=== PATIENT | male | born 1960 | race Caucasian/White ===

== ENCOUNTER 2017-11-15 07:06 | Inpatient (IN) | payer OTHER ==
[2017-10-25 11:56] VITALS: BMI 22.0
--- NOTE | 2017-10-25 12:23 | PAT Medication Instructions ---
Service Date Oct 25, 2017. Current Home Medication List Chlordiazepoxide (Librium), 10 MG PO NOON/HS Citalopram Hydrobromide (Celexa), 20 MG PO QAM Esomeprazole Magnesium (Nexium), 20 MG PO QAM Gabapentin (Neurontin), 200 MG PO TID Multivitamin (Multivitamin), 1 TAB PO QAM Probiotic Product (Probiotic), 1 TAB PO BID Medication Instructions For Your Scheduled Surgery - Hold the following medications the morning of surgery: Multivitamin (Multivitamin), 1 TAB PO QAM Probiotic Product (Probiotic), 1 TAB PO BID - Take the following medications the morning of surgery with a sip of water: Citalopram Hydrobromide (Celexa), 20 MG PO QAM Esomeprazole Magnesium (Nexium), 20 MG PO QAM Gabapentin (Neurontin), 200 MG PO TID - Take the following medications as scheduled the night before surgery: Chlordiazepoxide (Librium), 10 MG PO NOON/HS Gabapentin (Neurontin), 200 MG PO TID Probiotic Product (Probiotic), 1 TAB PO BID If you have any questions please call us at [phone] or [phone] or [phone]
--- NOTE | 2017-10-25 13:08 | DIAGNOSTIC IMAGING REPORT ---
CHEST 2 VIEWS ROUTINE CLINICAL HISTORY: Preoperative chest COMPARISON STUDY: No previous studies for comparison. FINDINGS: The cardiac and mediastinal contours are normal. There is no evidence of focal pulmonary consolidation. There is no evidence of failure. No pleural effusions are visualized.[ IMPRESSION: No active disease in the chest. Electronically signed by: David Portillo M.D. 10/25/2017 1:07 PM Dictated Date/Time: 10/25/2017 1:06 PM
[2017-10-25 15:49] LABS: BASO % 0.3 %; BASO ABS # 0.02 K/uL (0-0.2); EOS % 1.7 %; EOS ABS # 0.11 K/uL (0-0.5); HEMATOCRIT 41.9 % (42-52); HEMOGLOBIN 14.8 g/dL (14.0-18.0); IG# 0.02 K/uL (0.00-0.02); LYMPH % 31.9 %; LYMPH ABS # 2.04 K/uL (1.2-3.4); MEAN CELL VOLUME 97.7 fL (80-100); MEAN CORPUSCULAR HEMOGLOBIN 34.5 pg (25-34); MEAN CORPUSCULAR HGB CONC 35.3 g/dl (32-36); MEAN PLATELET VOLUME 9.4 fL (7.4-10.4); MONO % 12.4 %; MONO ABS # 0.79 K/uL (0.11-0.59); NEUT % 53.4 %; NEUT ABS # 3.41 K/uL (1.4-6.5); PLATELET COUNT 250 K/uL (130-400); WHITE BLOOD COUNT 6.39 K/uL (4.8-10.8)
[2017-10-25 15:58] LABS: CALCIUM 9.3 mg/dl (8.5-10.1); CREATININE 0.92 mg/dl (0.60-1.40); POTASSIUM 4.6 mmol/L (3.5-5.1)
[2017-11-15] VITALS (9 sets, daily range): BP systolic 119–163; BP diastolic 69–90; PULSE 64–83; TEMP 36.5–37; O2SAT 90–98; Ht 175.3 cm; Wt 70.0 kg
[~2017-11-15] VITALS: Ht 175.3 cm; Wt 70.0 kg
[~2017-11-15 07:06] MED LIST: CEFAZOLIN 1000MG IV PUSH 7.5 ML IV SCH; CHLO10CA7 PO; CITA20TA9 PO; ESOM20CA PO; GABA-112 PO; LACTATED RINGER'S 1000ML 1,000 ML IV SCH; MISCCAP80 PO; MULT-506 PO
[2017-11-15] MEDS ORDERED: MEPERIDINE HCL 25 MG/ML CARP IV PRN (08:00)
[2017-11-15] MEDS ORDERED: ATROPINE SULFATE 0.1 MG/ML 5ML SYR IV PRN (08:00)
[2017-11-15] MEDS ORDERED: LABETALOL HCL IV 5 MG/ML 20ML IV PRN (08:00)
[2017-11-15] MEDS ORDERED: EpHEDrine SULFATE INJ 50 MG/ML AMP IV PRN (08:00)
[2017-11-15] MEDS ORDERED: HYDROmorphone INJ 1 MG/ML SYR IV PRN (08:00)
[2017-11-15] MEDS ORDERED: ONDANSETRON INJ 2 MG/ML 2 ML VIAL IV PRN ×2 (08:00→11:00)
[2017-11-15] MEDS ORDERED: FENTANYL CITRATE INJ 50 MCG/1 ML 2 ML VIAL IV PRN (08:00)
[2017-11-15] MEDS ORDERED: FENTANYL CITRATE INJ 50 MCG/1 ML 2 ML VIAL ONE ×3 (08:22→10:33)
[2017-11-15] MEDS ORDERED: MIDAZOLAM HCL 1 MG/ML 2ML VIAL ONE (08:22)
--- NOTE | 2017-11-15 08:37 | History and Physical ---
History & Physical Date Nov 15, 2017. History of Present Illness The patient is a 57 year old male with complaints of back and leg pain Additional History Hepatic Disease: No Endocrine Disorder: No Kidney Disease: No Hypertension: No Heart Disease: No Bleeding Tendencies: No Infectious Diseases: No Allergies Coded Allergies: Codeine (Verified Allergy, Unknown, CHANGE IN MENTAL STATUS, 11/15/17) Home Medications Scheduled Chlordiazepoxide (Librium), 10 MG PO NOON/HS Citalopram Hydrobromide (Celexa), 20 MG PO QAM Esomeprazole Magnesium (Nexium), 20 MG PO QAM Gabapentin (Neurontin), 200 MG PO TID Multivitamin (Multivitamin), 1 TAB PO QAM Probiotic Product (Probiotic), 1 TAB PO BID Physical Examination Skin: warm/dry, no rash Eyes: normal inspection, EOMI, sclerae normal ENT: normal ENT inspection, pharynx normal Head: normocephalic, atraumatic Neck: supple, no adenopathy, trachea midline Respiratory/Chest: lungs clear, normal breath sounds, no respiratory distress Cardiovascular: regular rate, rhythm, no edema, no murmur Abdomen / GI: normal bowel sounds, non tender Back: normal inspection Extremities: normal inspection, normal range of motion Neurologic/Psych: no motor/sensory deficits, alert, normal reflexes, oriented x 3 Diagnosis Lumbar spinal stenosis with spondylolisthesis Plan of Treatment L5-S1 lumbar decompression and fusion
--- NOTE | 2017-11-15 08:37 | History & Physical Bridge Note ---
H&P Re-Evaluation Bridge Note: I have examined the patient, reviewed the History & Physical and in the interval since the performance of the History & Physical I have noted the following changes of clinical significance: No changes noted
[2017-11-15] MEDS ORDERED: BACITRACIN 50000 UNIT VIAL ONE (08:56)
[2017-11-15] MEDS ORDERED: BUPIVACAINE/EPINEPHRINE 0.5% MPF 1:200,000 30 ML VIAL ONE (08:56)
[2017-11-15] MEDS ORDERED: HYDROmorphone INJ 2 MG/ML SYR/VIAL ONE ×2 (09:37→10:48)
[2017-11-15] MEDS ORDERED: FLOSEAL HEMOSTATIC MATRIX 10ML TOP ONE (10:42)
[2017-11-15] MEDS ORDERED: ROCURONIUM BROMIDE 10 MG/ML 5 ML VIAL IV ONE (10:48)
[2017-11-15] MEDS ORDERED: DEXAMETHASONE SOD INJ 4 MG/ML VIAL ONE (10:48)
[2017-11-15] MEDS ORDERED: PROPOFOL IV EMULSION 10 MG/ML 20 ML VIAL IV ONE (10:48)
[2017-11-15] MEDS ORDERED: ONDANSETRON INJ 2 MG/ML 2 ML VIAL ONE ×2 (10:48→10:50)
[2017-11-15] MEDS ORDERED: LIDOCAINE HCL 2% 2 ML VIAL (20MG/ML) ONE (10:48)
[2017-11-15] MEDS ORDERED: GLYCOPYRROLATE INJ 0.2 MG/ML VIAL ONE (10:50)
[2017-11-15] MEDS ORDERED: KETOROLAC TROMETHAMINE 30 MG/ML VIAL ONE (10:50)
[2017-11-15] MEDS ORDERED: EpHEDrine SULFATE 50MG/5ML SYR ONE (10:50)
[2017-11-15] MEDS ORDERED: NEOSTIGMINE METHYLSULFATE 1 MG/ML 10ML VIAL ONE (10:50)
[2017-11-15] MEDS ORDERED: SODIUM CHLORIDE 0.9% 1000ML 1,000 ML IV SCH (10:51)
--- NOTE | 2017-11-15 10:51 | [facility] Operative Report ---
Operative Report Operative Date Nov 15, 2017. Pre-Operative Diagnosis Lumbar spinal stenosis with spondylolisthesis Post-Operative Diagnosis Lumbar spinal stenosis with spondylolisthesis Procedure(s) Performed 1. Lumbar decompression medial facetectomies and foraminotomies L4-5 L5-S1. #2 posterior spinal fusion L5-S1. #3 placement posterior instrumentation L5-S1. #4 interbody fusion L5-S1. #5 placement peek cage 12 x 22 mm L5-S1. #6 placement of locally harvested morselized allograft in the posterior lateral gutters. #7 placement of infuse collagen sponge Bymaster graft in the posterior lateral gutters and ostially up in the interbody space. Surgeon Dr. Noman Farooq Mold Sheet Cleaner Surgeon(s) Carmela Self PA-C Estimated Blood Loss 125 ml Findings Severe spinal stenosis with spondylolisthesis Specimens none per surgeon Anesthesia Type General Description of Procedure Patient was met with preoperatively case discussed all questions addressed. After informed consent obtained patient was taken to the operative suite underwent intubation and placed in a prone position on the Win table on top of the Markel frame. All bony prominences were well-padded the eye is inspected to ensure no external pressure placed upon him. This point the lumbar spine was prepped and draped in the normal sterile fashion. Sharp dissection with the assistance of Bovie cautery I was performed o down to and exposing exposing the lamina and transverse process of L5 and sacral ala bilaterally. Obvious bilateral pars defect noted. A complete laminectomy of L5 partial laminectomy of L4 was performed addressing severe lateral recess and foraminal stenosis. After this complete pedicle screws placed in L5 and S1 levels bilaterally with the assistance of fluoroscopy and the appropriate size shabbir placed. Through a transforaminal approach on the left complete discectomy of L5-S1 was performed endplates created to subcortical bleeding bone and a 12 x 22 mm peek cage filled with ostium bone graft tapped in position. Rods were then locked in a final position bilaterally. The transverse processes of L5 and the sacral ala burred to subcortical bleeding bone InFUSE collagen sponge master graft and locally harvested Spicer's Artegraft was placed in the posterior lateral gutters. 15 round DAVID drain inserted. Incision was then closed with 1 Vicryl fascia 2-0 Vicryl 17 C4 0 Monocryl for fashion closure Steri-Strips sterile dressings placed. Patient will continue packing in a stable condition. Please note Carmela Song was present throughout the entire procedure involved in patient positioning complex portions of the surgery and fashion closure. I attest to the content of the Intraoperative Record and any orders documented therein. Any exceptions are noted below.
[2017-11-15] MEDS ORDERED: DO NOT ADMINISTER PNEUMOCOCCAL VACCINE PRN (11:00)
[2017-11-15] MEDS ORDERED: PROMETHAZINE HCL INJ 12.5 MG in SODIUM CHLORIDE 0.9% 50ML 50 ML IV PRN (11:00)
[2017-11-15] MEDS ORDERED: LORAZEPAM 0.5 MG TAB PO PRN (11:00)
[2017-11-15] MEDS ORDERED: ACETAMINOPHEN 500 MG TAB PO PRN (11:00)
[2017-11-15] MEDS ORDERED: NALOXONE HCL 0.4 MG/1 ML VIAL/CARP IV PRN ×2 (11:00)
[2017-11-15] MEDS ORDERED: ACETAMINOPHEN IV 100 ML IV PRN (11:00)
[2017-11-15] MEDS ORDERED: BISACODYL 10 MG SUPP PR PRN (11:00)
[2017-11-15] MEDS ORDERED: HYDROmorphone INJ 0.5 MG/0.5 ML SYR IV PRN (11:00)
[2017-11-15] MEDS ORDERED: CEFAZOLIN IV 1,000 MG in DEXTROSE 5% 50ML 50 ML IV SCH (11:00)
[2017-11-15] MEDS ORDERED: FAMOTIDINE 20 MG TAB PO PRN (11:00)
[2017-11-15] MEDS ORDERED: DO NOT ADMINISTER FLU VACCINE PRN (11:00)
[2017-11-15] MEDS ORDERED: LORAZEPAM INJ 0.5 MG in SYRINGE 0 ML IV PRN (11:00)
[2017-11-15] MEDS ORDERED: MAGNESIUM HYDROXIDE SUSP 30 ML UDC PO PRN (11:00)
[2017-11-15] MEDS ORDERED: ALUMINUM/MAGNESIUM SUSP 30 ML UDC PO PRN (11:00)
[2017-11-15] MEDS ORDERED: SOD PHOSPHATE/SOD BIPHOSPHATE ENEMA 132 ML BTL PR PRN (11:00)
[2017-11-15] MEDS ORDERED: hydrOXYzine HCL 25 MG TAB PO PRN (11:00)
[2017-11-15] MEDS ORDERED: METOCLOPRAMIDE HCL INJ 5 MG/ML 2 ML VIAL IV PRN (11:00)
--- NOTE | 2017-11-15 11:00 | DIAGNOSTIC IMAGING REPORT ---
LUMBAR SPINE, INTRAOPERATIVE FLUOROSCOPY HISTORY: L5-S1 decompression and fusion. FLUOROSCOPY TIME: 18 seconds. FINDINGS: Intraoperative fluoroscopy was provided for the lumbar spine. 2 fluoroscopic spot images were obtained. Posterior decompression and fusion at L5-S1 with pedicle screws and rods. The hardware appears intact. IMPRESSION: Fluoroscopy provided for a L5-S1 posterior decompression and fusion. Electronically signed by: Santy Skinner M.D. 11/15/2017 10:58 AM Dictated Date/Time: 11/15/2017 10:58 AM
[2017-11-15] MEDS ORDERED: HYDROmorphone HCL 0.5MG/ML 50 ML CASSETTE ONE (11:06)
--- NOTE | 2017-11-15 12:48 | Anesthesiology Progress Note ---
Anesthesia Post Op Note Date & Time Nov 15, 2017 at 12:48 Vital Signs Pain Intensity: 7.0 Vital Signs Past 12 Hours Date Time Temp Pulse Resp B/P (MAP) Pulse Ox O2 Delivery O2 Flow Rate FiO2 11/15/17 12:30 36.5 77 16 153/87 (109) 95 Nasal Cannula 4.0 11/15/17 12:06 97 Nasal Cannula 3.0 11/15/17 12:02 36.8 83 15 163/90 (114) 98 Nasal Cannula 3.0 11/15/17 12:00 97 Nasal Cannula 3.0 11/15/17 11:45 36.2 83 16 156/93 95 Oxymask 3 11/15/17 11:35 76 16 158/94 98 Oxymask 3 11/15/17 11:25 76 16 159/92 98 Oxymask 3 11/15/17 11:15 69 14 164/79 98 Oxymask 5 11/15/17 11:07 36.2 79 14 179/71 97 Oxymask 5 11/15/17 07:38 37 66 20 155/89 97 Room Air Notes Mental Status: alert / awake / arousable, participated in evaluation Pt Amnestic to Procedure: Yes Nausea / Vomiting: adequately controlled Pain: adequately controlled Airway Patency, RR, SpO2: stable & adequate BP & HR: stable & adequate Hydration State: stable & adequate Anesthetic Complications: no major complications apparent
[2017-11-15] MEDS ORDERED: ESMOLOL HCL 10 MG/ML 10 ML VIAL ONE (13:10)
[2017-11-15] MEDS ORDERED: GABAPENTIN 100 MG CAP PO SCH (14:00)
[2017-11-15] MEDS ORDERED: GABAPENTIN 600 MG TAB PO SCH (14:15)
[2017-11-15] MEDS ORDERED: LORAZEPAM 1 MG TAB PO PRN (14:15)
[2017-11-15] MEDS: LACTATED RINGER'S 1000ML 1,000 ML IV SCH (14:41)
[2017-11-15] MEDS: HYDROmorphone HCL 0.5MG/ML 50 ML CASSETTE IV PRN ×2 (15:06→23:07)
[2017-11-15] MEDS ORDERED: MULTI-VITAMIN INFUSION INJ 10 ML, THIAMINE HCL INJ 100 MG, FoLIC ACID INJ 1 MG in SODIU... IV ONE (15:30)
[2017-11-15] MEDS: GABAPENTIN 1200MG LOADING DOSE PO SCH (16:00)
[2017-11-15] MEDS: CEFAZOLIN IV 1,000 MG in SYRINGE 0 ML IV SCH (17:28)
[2017-11-15] MEDS ORDERED: NURSING VERBAL MED ORDER ONE (19:15)
--- NOTE | 2017-11-15 20:48 | Medical Consult ---
Consultation Date of Consultation: Nov 15, 2017. Attending Physician: Noman Farooq D.O. Reason for Consultation: Medical consultation History of Present Illness Pt is 57 y/o M with PMH anxiety, depression, heavy alcohol use, lumbar back pain with radiculopathy, GERD seen in medical consult s/p L4-L5, L5-S1 lumbar decompression and spinal fusion by Dr Farooq today. Patient reports having some lower back pain feels pain is moderately controlled at this time. Denies any nausea or vomiting. Was able to eat lunch. Reports last BM was yesterday. Reports feels like is passing gas his since procedure. Denies paresthesias to extremities and has been able to move bilateral feet. Patient reports drinking 6 -8 beers daily. Last drink 8 PM last night. Patient denies any tremors, palpitations, anxiety, headache, diaphoresis, hallucination, seizures, fever/ chills, diaphoresis, dizziness, syncope, vision changes, neck pain, CP, SOB, orthopnea, cough, sore throat, choking, otalgia, rhinorrhea, abdominal pain, rashes, urinary symptoms. Past Medical/Surgical History Medical Problems: (1) Anxiety Status: Chronic (2) Depression Status: Chronic (3) GERD (gastroesophageal reflux disease) Status: Chronic Surgical Problems: (1) Hx of cholecystectomy Status: Resolved (2) Hx of inguinal hernia repair Status: Resolved (3) Hx of tonsillectomy Status: Resolved Social History Problems: (1) Alcohol abuse Status: Chronic Family History FH: breast cancer Social History Smoking Status: Current Every Day Smoker (1ppd x 40 years) Smokeless Tobacco Use: No Alcohol Use: 6-8 beers daily Drug Use: none Marital Status: Housing Status: lives with family Occupation Status: employed Allergies Coded Allergies: Codeine (Verified Allergy, Unknown, CHANGE IN MENTAL STATUS, 11/15/17) Current Inpatient Medications Current Inpatient Medications Medications (Trade) Dose Ordered Sig/Bobby Route Start Time Stop Time Status Last Admin Dose Admin Cefazolin Sodium 7.5 ml @ 1.667 mls/ min PREOP IV 11/15/17 06:00 11/15/17 18:00 11/15/17 09:14 1.667 MLS/MIN Lactated Ringer's 1,000 ml @ 15 mls/hr Q24H IV 11/15/17 06:00 11/16/17 05:59 11/15/17 07:38 15 MLS/HR Promethazine HCl 12.5 mg/Sodium Chloride 50.5 ml @ 202 mls/hr Q6H PRN IV 11/15/17 11:00 12/15/17 10:59 Ondansetron HCl (Zofran Inj) 4 mg Q6H PRN IV 11/15/17 11:00 12/15/17 10:59 Metoclopramide HCl (Reglan Inj) 10 mg Q6H PRN IV 11/15/17 11:00 12/15/17 10:59 Lorazepam (Ativan Tab) 0.5 mg Q8H PRN PO 11/15/17 11:00 12/15/17 10:59 Lorazepam 0.5 mg/ Syringe 0.25 ml @ 1 mls/min Q8H PRN IV 11/15/17 11:00 12/15/17 10:59 Pneumococcal Polysaccharide Vaccine 1 ea PRN PRN N/A 11/15/17 11:00 12/15/17 10:59 Influenza Virus Vacc Triv Types A&B 1 ea PRN PRN N/A 11/15/17 11:00 12/15/17 10:59 Polyethylene (Miralax Powder Packet) 17 gm Q6 PO 11/17/17 06:00 12/17/17 05:59 Bisacodyl (Dulcolax Supp) 10 mg DAILY PRN NE 11/15/17 11:00 12/15/17 10:59 Magnesium Hydroxide (Milk Of Magnesia Susp) 30 ml DAILY PRN PO 11/15/17 11:00 12/15/17 10:59 Oxycodone HCl (Roxicodone Immediate Rel Tab) 5-10mg prn moderate to sev... Q4H PRN PO 11/16/17 06:00 11/30/17 05:59 Lactated Ringer's 1,000 ml @ 150 mls/hr Q6H40M IV 11/15/17 10:51 12/15/17 10:50 11/15/17 14:41 150 MLS/HR Acetaminophen (Tylenol Tab) 1,000 mg Q8H PRN PO 11/15/17 11:00 12/15/17 10:59 Acetaminophen 100 ml @ 400 mls/hr Q8H PRN IV 11/15/17 11:00 12/15/17 10:59 Naloxone HCl (Narcan Inj) 0.1 mg Q5M PRN IV 11/15/17 11:00 12/15/17 10:59 Senna/Docusate Sodium (Senokot S Tab) 2 tab HS PO 11/15/17 21:00 12/15/17 20:59 Sodium Biphosphate/ Sodium Phosphate (Fleet Enema) 132 ml ONE PRN NE 11/15/17 11:00 12/15/17 10:59 Hydroxyzine HCl (Vistaril Tab) 25 mg Q8H PRN PO 11/15/17 11:00 12/15/17 10:59 Al Hydroxide/Mg Hydroxide (Maalox Susp) 30 ml Q6H PRN PO 11/15/17 11:00 12/15/17 10:59 Famotidine (Pepcid Tab) 20 mg Q12 PRN PO 11/15/17 11:00 12/15/17 10:59 Diphenhydramine HCl (Benadryl Cap) 25 mg Q6H PRN PO 11/15/17 11:00 12/15/17 10:59 Miscellaneous Information (Discontinue J2EE JAVA DEVELOPER) 1 ea TODAY@0600 ONCE N/A 11/16/17 06:00 11/16/17 06:01 Naloxone HCl (Narcan Inj) 0.1 mg Q5M PRN IV 11/15/17 11:00 11/16/17 06:00 Hydromorphone HCl (Dilaudid Retail Key Holder) 25 mg PRN PRN IV 11/15/17 11:00 11/16/17 06:00 Sodium Chloride 1,000 ml @ 15 mls/hr Q24H IV 11/15/17 10:51 11/16/17 06:00 Chlordiazepoxide (Librium Cap) 10 mg DAILY PO 11/16/17 09:00 12/16/17 08:59 Citalopram Hydrobromide (celeXA TAB) 20 mg QAM PO 11/16/17 09:00 12/16/17 08:59 Gabapentin (Neurontin Cap) 200 mg TID PO 11/15/17 14:00 12/15/17 13:59 Future Hold 11/15/17 14:40 200 MG Pantoprazole Sodium (Protonix Tab) 40 mg QAM PO 11/16/17 09:00 12/16/17 08:59 Hydromorphone HCl (Dilaudid Inj) 0.5 mg Q3H PRN IV 11/16/17 06:00 11/30/17 05:59 Hydromorphone HCl (Dilaudid Inj) 1 mg Q3H PRN IV 11/16/17 06:00 11/30/17 05:59 Cefazolin Sodium 1000 mg/Syringe 7.5 ml @ 2.5 mls/min Q8H IV 11/15/17 17:00 11/16/17 01:02 Lorazepam (Ativan Tab) PRN Dosing -Active Protocol UD PRN PO 11/15/17 14:15 12/15/17 14:14 Gabapentin (Neurontin Tab) 1,200 mg TODAY@1600 PO 11/15/17 16:00 12/15/17 15:59 Gabapentin (Neurontin Tab) 600 mg Q6H PO 11/15/17 22:00 11/16/17 06:01 Gabapentin (Neurontin Tab) 600 mg Q8H PO 11/16/17 14:00 11/17/17 06:01 Gabapentin (Neurontin Tab) 600 mg Q12H PO 11/17/17 18:00 11/18/17 06:01 Gabapentin (Neurontin Tab) 600 mg Q24H PO 11/19/17 06:00 11/19/17 06:01 Multivitamins 10 ml/Thiamine HCl 100 mg/Folic Acid 1 mg/Sodium Chloride 1,011.2 ml @ 500 mls/ hr Q2H2M ONCE IV 11/15/17 14:44 11/15/17 16:45 UNV Thiamine HCl (Vitamin B-1 Tab) 100 mg QAM PO 11/16/17 09:00 12/16/17 08:59 UNV Folic Acid (Folvite Tab) 400 mcg QAM PO 11/16/17 09:00 12/16/17 08:59 UNV Cyanocobalamin (Vitamin B-12 Tab) 500 mcg QAM PO 11/16/17 09:00 12/16/17 08:59 UNV Review of Systems See HPI for pertinent positives & negatives. All other systems reviewed and were otherwise negative Physical Exam Date Time Temp Pulse Resp B/P (MAP) Pulse Ox O2 Delivery O2 Flow Rate FiO2 11/15/17 14:09 64 16 119/73 (88) 90 Nasal Cannula 3.0 11/15/17 13:21 36.7 82 16 139/80 (99) 95 Nasal Cannula 3.0 11/15/17 12:30 36.5 77 16 153/87 (109) 95 Nasal Cannula 4.0 11/15/17 12:06 97 Nasal Cannula 3.0 11/15/17 12:02 36.8 83 15 163/90 (114) 98 Nasal Cannula 3.0 11/15/17 12:00 97 Nasal Cannula 3.0 11/15/17 11:45 36.2 83 16 156/93 95 Oxymask 3 11/15/17 11:35 76 16 158/94 98 Oxymask 3 11/15/17 11:25 76 16 159/92 98 Oxymask 3 11/15/17 11:15 69 14 164/79 98 Oxymask 5 11/15/17 11:07 36.2 79 14 179/71 97 Oxymask 5 11/15/17 07:38 37 66 20 155/89 97 Room Air General Appearance: WD/WN, no apparent distress Head: normocephalic, atraumatic Eyes: normal inspection, PERRL, EOMI, sclerae normal ENT: hearing grossly normal, pharynx normal, + pertinent finding (mucous membranes moist) Neck: supple, no JVD, trachea midline Respiratory/Chest: lungs clear, normal breath sounds, no respiratory distress Cardiovascular: regular rate, rhythm, no murmur, normal peripheral pulses Abdomen/GI: normal bowel sounds, non tender, soft Back: + pertinent finding (+surgical dressing in place, +drain in place) Extremities/Musculoskelatal: normal capillary refill, no pedal edema, + pertinent finding (sensation to light touch intact, bilateral pedal pulls and pushes intact) Neurologic/Psych: alert, normal mood/affect, oriented x 3 Skin: normal color, warm/dry Assessment & Plan Pt post op day# 0 S/P L4-L5, L5-S1 decompression & fusion by Dr Farooq -pain management per ortho -wound management per ortho -PT/OT as appropriate -DVT prophylaxis per ortho -incentive spirometry -monitor H&H for acute blood loss anemia HEAVY ETOH USE Drinks 6-8 beers daily. Last drink 20:00 last night. No tremors, agitation, anxiety, YI, diaphoresis, N/V, palpitations at this time -ETOH withdrawal protocol -banana bag -gabapentin withdrawal protocol -low threshold for transfer to tele if symptoms -liver profile in am -thiamine 100mg daily, Vit B 12 500mcg daily, Folate 400 mcg daily CHRONIC BACK PAIN -at this time hold pt's home gabapentin, as receiving gabapentin ETOH withdrawal protocol ANXIETY/DEPRESSION Stable -continue celexa, librium GERD -continue PPI DVT Prophylaxis -per ortho Disposition admitted med/surg Full Code Follows with Dr Herrera - [facility] for routine care Pt was seen with Dr Reyes. See addendum ADDENDUM: I have seen and examined the patient and agree with the note above. Eric, DO Additional Copies To Dirk Herrera M.D.
[2017-11-15] MEDS: DOCUSATE SODIUM/SENNA 50/8.6MG TAB PO SCH (21:32)
[2017-11-15] MEDS: GABAPENTIN 600MG Q6H DOSE PO SCH (21:32)
[2017-11-16] VITALS (10 sets, daily range): BP systolic 132–156; BP diastolic 74–82; PULSE 62–81; TEMP 36.7–36.9; O2SAT 88–97
[2017-11-16] MEDS: CEFAZOLIN IV 1,000 MG in SYRINGE 0 ML IV SCH (00:47)
[2017-11-16] MEDS: LACTATED RINGER'S 1000ML 1,000 ML IV SCH (00:48)
[2017-11-16] MEDS ORDERED: NALOXONE HCL 0.4 MG/1 ML VIAL/CARP IV STA (01:41)
[2017-11-16 02:32] LABS: BASO % 0.1 %; BASO ABS # 0.01 K/uL (0-0.2); HEMATOCRIT 33.6 % (42-52); HEMOGLOBIN 11.8 g/dL (14.0-18.0); IG# 0.05 K/uL (0.00-0.02); LYMPH % 9.5 %; LYMPH ABS # 1.11 K/uL (1.2-3.4); MEAN CORPUSCULAR HEMOGLOBIN 33.7 pg (25-34); MEAN CORPUSCULAR HGB CONC 35.1 g/dl (32-36); MEAN PLATELET VOLUME 8.8 fL (7.4-10.4); MONO % 8.4 %; MONO ABS # 0.98 K/uL (0.11-0.59); NEUT % 81.6 %; NEUT ABS # 9.51 K/uL (1.4-6.5); PLATELET COUNT 169 K/uL (130-400); RED CELL DISTRIBUTION WIDTH CV 12.8 % (11.5-14.5); RED CELL DISTRIBUTION WIDTH SD 44.2 fL (36.4-46.3); WHITE BLOOD COUNT 11.66 K/uL (4.8-10.8)
[2017-11-16 02:46] LABS: PTT PATIENT 25.4 SECONDS (21.0-31.0)
[2017-11-16 02:49] LABS: ALBUMIN 3.3 gm/dl (3.4-5.0); CALCIUM 8.2 mg/dl (8.5-10.1); CREATININE 0.9 mg/dl (0.60-1.40); POTASSIUM 4.3 mmol/L (3.5-5.1)
[2017-11-16 02:58] LABS: TOTAL PROTEIN 6.3 gm/dl (6.4-8.2)
[2017-11-16] MEDS ORDERED: CALCIUM GLUCONATE 10% 1,000 MG in SODIUM CHLORIDE 0.9% 50ML 50 ML IV ONE (03:45)
[2017-11-16] MEDS: GABAPENTIN 600MG Q6H DOSE PO SCH (05:57)
[2017-11-16] MEDS ORDERED: HYDROmorphone INJ 1 MG/ML SYR IV PRN ×2 (06:00)
[2017-11-16] MEDS ORDERED: HYDROmorphone INJ 0.5 MG/0.5 ML SYR IV PRN ×2 (06:00)
[2017-11-16] MEDS ORDERED: DC PCA ONE (06:00)
[2017-11-16] MEDS ORDERED: OXYCODONE HCL IR 5 MG TAB (IMMEDIATE RELEASE) PO PRN (06:00)
[2017-11-16] MEDS ORDERED: NURSING DECISION MEDICATION ORDER SCH (06:45)
--- NOTE | 2017-11-16 06:58 | DIAGNOSTIC IMAGING REPORT ---
CHEST ONE VIEW PORTABLE CLINICAL HISTORY: 57 years-old Male presenting with low o2. TECHNIQUE: Portable upright AP view of the chest was obtained. COMPARISON: 10/25/2017. FINDINGS: Cardiomediastinal silhouette normal. Lungs and pleural spaces clear. Few linear opacities in the mid to lower lungs. No other focal opacity. No large effusion or pneumothorax. IMPRESSION: 1. Minimal atelectasis mid to lower lungs. No focal infiltrate to suggest pneumonia. Electronically signed by: Sagar Decker M.D. 11/16/2017 6:57 AM Dictated Date/Time: 11/16/2017 6:55 AM
[2017-11-16] MEDS ORDERED: FoLIC ACID TAB 400 MCG TAB PO SCH (09:00)
[2017-11-16] MEDS: CHLORDIAZEPOXIDE 10 MG CAP PO SCH (09:10)
[2017-11-16] MEDS: CITALOPRAM 20 MG TAB PO SCH (09:11)
[2017-11-16] MEDS: OXYCODONE HCL IR 5 MG TAB (IMMEDIATE RELEASE) PO PRN ×3 (09:11→23:52)
[2017-11-16] MEDS: PANTOprazole SOD 40 MG TAB PO SCH (09:12)
[2017-11-16] MEDS: CYANOCOBALAMIN 500 MCG TAB (VIT B-12) PO SCH (09:12)
[2017-11-16] MEDS: THIAMINE HCL 100 MG TAB PO SCH (09:12)
[2017-11-16] MEDS ORDERED: KETOROLAC TROMETHAMINE 30 MG/ML VIAL IV PRN (09:15)
--- NOTE | 2017-11-16 09:48 | Progress Note ---
Progress Note Date of Service Nov 16, 2017. Progress Note Back pain is controlled his left leg symptoms are markedly improved. On exam is good strength testing appears comfortable. Assessment status post lumbar decompression fusion. Plan at this time will continue physical therapy today possible discharge home Monday or Monday.
--- NOTE | 2017-11-16 09:50 | Anesthesiology Progress Note ---
Anesthesia Post Op Note Date & Time Nov 16, 2017 at 09:50 Vital Signs Vital Signs Past 12 Hours Date Time Temp Pulse Resp B/P (MAP) Pulse Ox O2 Delivery O2 Flow Rate FiO2 11/16/17 07:31 36.8 71 18 132/78 (96) 97 Nasal Cannula 3.0 11/16/17 03:21 36.8 81 15 156/74 (101) 95 Nasal Cannula 2.0 11/16/17 03:20 Nasal Cannula 3.0 11/16/17 01:50 13 11/16/17 01:29 8 11/16/17 01:08 93 Nasal Cannula 2.0 11/16/17 01:03 9 88 Room Air 11/16/17 00:43 Nasal Cannula 2.0 11/15/17 22:53 36.7 76 8 156/74 (101) 90 Room Air Notes Mental Status: alert / awake / arousable, participated in evaluation Pt Amnestic to Procedure: Yes Nausea / Vomiting: adequately controlled Pain: adequately controlled Airway Patency, RR, SpO2: stable & adequate BP & HR: stable & adequate Hydration State: stable & adequate Anesthetic Complications: no major complications apparent
[2017-11-16] MEDS ORDERED: KETOROLAC TROMETHAMINE 30 MG/ML VIAL ONE (10:12)
[2017-11-16] MEDS: GABAPENTIN 600MG Q8H DOSE PO SCH ×2 (14:12→21:31)
[2017-11-16] MEDS: GABAPENTIN 1200MG LOADING DOSE PO SCH (15:13)
--- NOTE | 2017-11-16 15:20 | Progress Note ---
Subjective Date of Service: Nov 16, 2017. Subjective Pt evaluation today including: conversation w/ patient, physical exam, lab review, review of studies, review of inpatient medication list Saw/examined the patient in room 324 he's doing well, ambulating the hallways, pain controlled with medications no BM as of yet, denies abdominal pain/nausea/vomiting Review of Systems Constitutional: No fever, No chills Respiratory: No cough, No sputum, No shortness of breath Cardiac: No chest pain Abdomen: + constipation, No pain, No nausea, No vomiting, No diarrhea Musculoskeletal: No joint pain Medications Current Inpatient Medications Medications (Trade) Dose Ordered Sig/Bobby Route Start Time Stop Time Status Last Admin Dose Admin Promethazine HCl 12.5 mg/Sodium Chloride 50.5 ml @ 202 mls/hr Q6H PRN IV 11/15/17 11:00 12/15/17 10:59 Ondansetron HCl (Zofran Inj) 4 mg Q6H PRN IV 11/15/17 11:00 12/15/17 10:59 Metoclopramide HCl (Reglan Inj) 10 mg Q6H PRN IV 11/15/17 11:00 12/15/17 10:59 Lorazepam (Ativan Tab) 0.5 mg Q8H PRN PO 11/15/17 11:00 12/15/17 10:59 Lorazepam 0.5 mg/ Syringe 0.25 ml @ 1 mls/min Q8H PRN IV 11/15/17 11:00 12/15/17 10:59 Pneumococcal Polysaccharide Vaccine 1 ea PRN PRN N/A 11/15/17 11:00 12/15/17 10:59 Influenza Virus Vacc Triv Types A&B 1 ea PRN PRN N/A 11/15/17 11:00 12/15/17 10:59 Polyethylene (Miralax Powder Packet) 17 gm Q6 PO 11/17/17 06:00 12/17/17 05:59 Bisacodyl (Dulcolax Supp) 10 mg DAILY PRN AR 11/15/17 11:00 12/15/17 10:59 Magnesium Hydroxide (Milk Of Magnesia Susp) 30 ml DAILY PRN PO 11/15/17 11:00 12/15/17 10:59 Acetaminophen (Tylenol Tab) 1,000 mg Q8H PRN PO 11/15/17 11:00 12/15/17 10:59 Acetaminophen 100 ml @ 400 mls/hr Q8H PRN IV 11/15/17 11:00 12/15/17 10:59 Naloxone HCl (Narcan Inj) 0.1 mg Q5M PRN IV 11/15/17 11:00 12/15/17 10:59 Senna/Docusate Sodium (Senokot S Tab) 2 tab HS PO 11/15/17 21:00 12/15/17 20:59 11/15/17 21:32 2 TAB Sodium Biphosphate/ Sodium Phosphate (Fleet Enema) 132 ml ONE PRN AR 11/15/17 11:00 12/15/17 10:59 Hydroxyzine HCl (Vistaril Tab) 25 mg Q8H PRN PO 11/15/17 11:00 12/15/17 10:59 Al Hydroxide/Mg Hydroxide (Maalox Susp) 30 ml Q6H PRN PO 11/15/17 11:00 12/15/17 10:59 Famotidine (Pepcid Tab) 20 mg Q12 PRN PO 11/15/17 11:00 12/15/17 10:59 Diphenhydramine HCl (Benadryl Cap) 25 mg Q6H PRN PO 11/15/17 11:00 12/15/17 10:59 Chlordiazepoxide (Librium Cap) 10 mg DAILY PO 11/16/17 09:00 12/16/17 08:59 11/16/17 09:10 10 MG Citalopram Hydrobromide (celeXA TAB) 20 mg QAM PO 11/16/17 09:00 12/16/17 08:59 11/16/17 09:11 20 MG Gabapentin (Neurontin Cap) 200 mg TID PO 11/15/17 14:00 12/15/17 13:59 Future Hold 11/15/17 14:40 200 MG Pantoprazole Sodium (Protonix Tab) 40 mg QAM PO 11/16/17 09:00 12/16/17 08:59 11/16/17 09:12 40 MG Lorazepam (Ativan Tab) PRN Dosing -Active Protocol UD PRN PO 11/15/17 14:15 12/15/17 14:14 Gabapentin (Neurontin Tab) 1,200 mg TODAY@1600 PO 11/15/17 16:00 12/15/17 15:59 11/15/17 16:00 1,200 MG Gabapentin (Neurontin Tab) 600 mg Q8H PO 11/16/17 14:00 11/17/17 06:01 11/16/17 14:12 600 MG Gabapentin (Neurontin Tab) 600 mg Q12H PO 11/17/17 18:00 11/18/17 06:01 Gabapentin (Neurontin Tab) 600 mg Q24H PO 11/19/17 06:00 11/19/17 06:01 Thiamine HCl (Vitamin B-1 Tab) 100 mg QAM PO 11/16/17 09:00 12/16/17 08:59 11/16/17 09:12 100 MG Folic Acid (Folvite Tab) 400 mcg QAM PO 11/16/17 09:00 12/16/17 08:59 11/16/17 09:12 400 MCG Cyanocobalamin (Vitamin B-12 Tab) 500 mcg QAM PO 11/16/17 09:00 12/16/17 08:59 11/16/17 09:12 500 MCG Hydromorphone HCl (Dilaudid Inj) 1 mg Q3H PRN IV 11/16/17 06:00 11/30/17 05:59 Hydromorphone HCl (Dilaudid Inj) 0.5 mg Q3H PRN IV 11/16/17 06:00 11/30/17 05:59 Oxycodone HCl (Roxicodone Immediate Rel Tab) 5-10mg prn moderate to sev... Q4H PRN PO 11/16/17 06:00 11/30/17 05:59 11/16/17 09:11 10 MG Ketorolac Tromethamine (Toradol Inj) 30 mg Q6H PRN IV 11/16/17 09:15 11/21/17 09:14 Objective Vital Signs Date Time Temp Pulse Resp B/P (MAP) Pulse Ox O2 Delivery O2 Flow Rate FiO2 11/16/17 11:08 36.9 68 16 142/79 (100) 91 Room Air 11/16/17 10:02 91 Room Air 11/16/17 08:00 94 Room Air 11/16/17 07:31 36.8 71 18 132/78 (96) 97 Nasal Cannula 3.0 11/16/17 03:21 36.8 81 15 156/74 (101) 95 Nasal Cannula 2.0 11/16/17 03:20 Nasal Cannula 3.0 11/16/17 01:50 13 11/16/17 01:29 8 11/16/17 01:08 93 Nasal Cannula 2.0 11/16/17 01:03 9 88 Room Air 11/16/17 00:43 Nasal Cannula 2.0 11/15/17 22:53 36.7 76 8 156/74 (101) 90 Room Air 11/15/17 19:46 36.5 70 16 130/77 (94) 91 Room Air 11/15/17 16:00 Nasal Cannula 3.0 11/15/17 16:00 36.9 68 18 123/69 (87) 95 Nasal Cannula 3.0 Physical Exam General Appearance: no apparent distress Respiratory/Chest: no respiratory distress, no accessory muscle use Cardiovascular: regular rate, rhythm, no edema, no murmur Extremities: normal inspection, no pedal edema Laboratory Results Last 24 Hours Test 11/16/17 02:16 11/16/17 02:21 White Blood Count 11.66 K/uL Red Blood Count 3.50 M/uL Hemoglobin 11.8 g/dL Hematocrit 33.6 % Mean Corpuscular Volume 96.0 fL Mean Corpuscular Hemoglobin 33.7 pg Mean Corpuscular Hemoglobin Concent 35.1 g/dl Platelet Count 169 K/uL Mean Platelet Volume 8.8 fL Neutrophils (%) (Auto) 81.6 % Lymphocytes (%) (Auto) 9.5 % Monocytes (%) (Auto) 8.4 % Eosinophils (%) (Auto) 0.0 % Basophils (%) (Auto) 0.1 % Neutrophils # (Auto) 9.51 K/uL Lymphocytes # (Auto) 1.11 K/uL Monocytes # (Auto) 0.98 K/uL Eosinophils # (Auto) 0.00 K/uL Basophils # (Auto) 0.01 K/uL RDW Standard Deviation 44.2 fL RDW Coefficient of Variation 12.8 % Immature Granulocyte % (Auto) 0.4 % Immature Granulocyte # (Auto) 0.05 K/uL Activated Partial Thromboplast Time 25.4 SECONDS Partial Thromboplastin Ratio 1.0 Arterial Blood pH 7.38 Arterial Blood Partial Pressure CO2 51 mmHg Arterial Blood Partial Pressure O2 68 mm/Hg Arterial Blood HCO3 30 mmol/L Arterial Blood Oxygen Saturation 91.6 % Arterial Blood Base Excess 3.5 mEq/L Arterial Blood Gas Delivery 3L Rosas Test POS Sodium Level 137 mmol/L Potassium Level 4.3 mmol/L Chloride Level 103 mmol/L Carbon Dioxide Level 31 mmol/L Anion Gap 3.0 mmol/L Blood Urea Nitrogen 13 mg/dl Creatinine 0.90 mg/dl Est Creatinine Clear Calc Drug Dose 87.5 ml/min Estimated GFR () 108.0 Estimated GFR (Non- 93.2 BUN/Creatinine Ratio 14.3 Random Glucose 119 mg/dl Calcium Level 8.2 mg/dl Magnesium Level 2.0 mg/dl Total Bilirubin 0.6 mg/dl Aspartate Amino Transf (AST/SGOT) 260 U/L Alanine Aminotransferase (ALT/SGPT) 273 U/L Alkaline Phosphatase 88 U/L Total Protein 6.3 gm/dl Albumin 3.3 gm/dl Globulin 3.0 gm/dl Albumin/Globulin Ratio 1.1 Thyroid Stimulating Hormone (TSH) 0.166 uIu/ml Free Thyroxine 0.73 ng/dl Total Triiodothyronine 0.50 ng/ml Assessment and Plan s/p Lumbar Decompression/Fusion * POD #1 * doing well, denies any issues * pain controlled with medications * PT/OT * plan for d/c as per ortho Acute Expected Blood Loss Anemia * Hgb = 11, down from 14 * expected post-surgery * monitor Alcohol Use * Drinks 6-8 beers daily * gabapentin withdrawal protocol * received banana bag * now on multivitamin, thiamine, folic acid Anxiety/Depression * continue Celexa, Librium GERD * continue PPI DVT ppx * as per ortho FULL CODE
[2017-11-16] MEDS: DOCUSATE SODIUM/SENNA 50/8.6MG TAB PO SCH (20:41)
[2017-11-17] MEDS: POLYETHYLENE (MIRALAX) 17 GM PACK PO SCH ×2 (05:38→11:54)
[2017-11-17] MEDS: GABAPENTIN 600MG Q8H DOSE PO SCH (05:38)
[2017-11-17 06:42] LABS: HEMATOCRIT 34.8 % (42-52); HEMOGLOBIN 11.9 g/dL (14.0-18.0); MEAN CELL VOLUME 99.1 fL (80-100); MEAN CORPUSCULAR HEMOGLOBIN 33.9 pg (25-34); MEAN CORPUSCULAR HGB CONC 34.2 g/dl (32-36); MEAN PLATELET VOLUME 9.4 fL (7.4-10.4); PLATELET COUNT 181 K/uL (130-400); RED CELL DISTRIBUTION WIDTH CV 12.9 % (11.5-14.5); RED CELL DISTRIBUTION WIDTH SD 46.7 fL (36.4-46.3); WHITE BLOOD COUNT 9.38 K/uL (4.8-10.8)
[2017-11-17 07:13] LABS: CALCIUM 8.2 mg/dl (8.5-10.1); CREATININE 0.93 mg/dl (0.60-1.40); POTASSIUM 3.9 mmol/L (3.5-5.1)
[2017-11-17] MEDS: OXYCODONE HCL IR 5 MG TAB (IMMEDIATE RELEASE) PO PRN ×2 (07:20→14:00)
[2017-11-17 07:40] VITALS: BP 145/90; PULSE 82; TEMP 37.5; O2SAT 90
[2017-11-17] MEDS: CHLORDIAZEPOXIDE 10 MG CAP PO SCH (08:40)
[2017-11-17] MEDS: CITALOPRAM 20 MG TAB PO SCH (08:40)
[2017-11-17] MEDS: THIAMINE HCL 100 MG TAB PO SCH (08:41)
[2017-11-17] MEDS: CYANOCOBALAMIN 500 MCG TAB (VIT B-12) PO SCH (08:41)
[2017-11-17] MEDS: PANTOprazole SOD 40 MG TAB PO SCH (08:41)
[2017-11-17] MEDS ORDERED: MULTIVITAMIN TAB PO SCH (09:00)
[2017-11-17 09:20] VITALS: O2SAT 90
[2017-11-17] MEDS ORDERED: RXC5 PO (11:27)
--- NOTE | 2017-11-17 11:27 | Discharge Instructions ---
Discharge Instructions Date of Service Nov 17, 2017. Admission Reason for Admission: Spinal Stenosis Discharge Discharge Diagnosis / Problem: lumbar stenosis Discharge Goals Goal(s): Improve function Activity Recommendations Activity Limitations: per Instructions/Follow-up section . Instructions / Follow-Up Instructions / Follow-Up ACTIVITY RECOMMENDATIONS: SELF CARE INSTRUCTIONS AFTER THORACIC/LUMBAR FUSIONS 1. You may walk to your tolerance. It is good exercise for your legs and back. Expect some back and intermittent leg aches and pains. 2. You may perform "counter-top" level activities (make a sandwich, ale with a project, etc.). 3. No bending or lifting of more than 10 pounds or back twisting of any nature (roll like a log when turning in bed). 4. You may ride in a car for 20-30 minutes at a time. No driving until after your first visit with your doctor. 5. Frequent changes of position and restricting sitting to 30 minutes at a time will help limit the amount of back spasms and stiffness you may experience. 6. You may discontinue the use of ambulatory aids (cane, crutches, etc.) once your strength and confidence allow. 7. You may artificial teeth inspector the shower and let water strike your incision when you arrive home at least once daily. Do not take a tub bath, sit in a hot tub or go into a swimming pool until after your first recheck in the office. SPECIAL CARE INSTRUCTIONS: VERY IMPORTANT TO READ AND REVIEW A. Your surgical incision has been closed with a cosmetic suture under the skin that will dissolve in about 6 weeks. In 14 days, you can use a pair of clean scissors and cut the suture that is left outside of the skin at the ends of your incision. 1. The small skin tapes can be removed 7 days after surgery if they have not fallen off by that point. 2. You may keep the wound open to air as much as possible to promote healing after post-op day number 5 unless told otherwise by your doctor. 3. If you think the wound looks like it is becoming infected (redness or worsening drainage) and/or you are experiencing fever, chill or worsening back pain and muscle spasms, contact the office so that we may evaluate you as soon as possible. B. Complications are uncommon, but please contact us if you have any signs or symptoms of: 1. wound infection (fever higher than 102.5 degrees F, redness, separation of wound, drainage, or increasing pain from the incision) 2. blood clots in legs (pain, swelling, redness and warmth in legs) 3. urinary tract infection (fever higher than 102.5 degrees F, burning upon urination or increased frequency of urination) 4. nerve problems (inability to walk on your toes or heels, numbness, loss of bowel or bladder control) 5. any other symptoms that concern you C. Please call the office at if you have any concerns or questions about your operation or recovery. D. No smoking! Smoking drastically decreases the chance of a solid fusion. E. Do not take any anti-inflammatory medications (Indocin, Advil, Motrin, Aspirin, Naprosyn, etc.) as these may inhibit the chance of a solid fusion. Tylenol is okay to take for pain. MANAGING PAIN AFTER SPINAL SURGERY 1. Narcotic medication is intended for short-term use and will be provided for surgical pain. Surgical pain usually lasts for a period of 4-6 weeks. Narcotic medication includes Percocet, Vicodin, Darvocet, Tylenol #3 or Lortab. 2. Longer-term pain is more appropriately treated with non-narcotic medication such as Tylenol ES. 3. Muscle spasm is not appropriately treated with narcotics. Muscle relaxers such as Soma, Flexeril or Skelaxin can be used along with Tylenol ES. 4. Remember that we all live with some "aches and pains". This is not unusual or uncommon after an injury or as we get older. a. Back pain is expected and may include muscle spasms for 4 to 6 weeks after surgery. The pain should gradually improve. If the pain worsens for no apparent reason, please contact the office. b. Intermittent leg pain may also be experienced and should not be concerned about unless it worsens for no apparent reason. If so, please contact the office. 5. We will provide appropriate medication within the normal guidelines of their prescribed use. We will also be very cautious and aware of potential abuse and extended duration of patients' medication needs. a. Pain medications are for your comfort and to assist with sleep and rest so that the tissue can heal. They are not provided in order to return to normal activity and should not be used through the day. To do so or worsening pain at night can result from ongoing tissue damage and development of tolerance to the prescribed medicine. 6. Please allow 2-3 days to process refills. Prescriptions will not be mailed but must be picked up at the office. FOLLOW UP VISIT: Keep your scheduled follow-up appointment. Any questions, please call the office at . Current Hospital Diet Patient's current hospital diet: Regular Diet Discharge Diet Recommended Diet: Regular Diet Procedures Procedures Performed: 1. Lumbar decompression medial facetectomies and foraminotomies L4-5 L5-S1. #2 posterior spinal fusion L5-S1. #3 placement posterior instrumentation L5-S1. #4 interbody fusion L5-S1. #5 placement peek cage 12 x 22 mm L5-S1. #6 placement of locally harvested morselized allograft in the posterior lateral gutters. #7 placement of infuse collagen sponge Bymaster graft in the posterior lateral gutters and ostially up in the interbody space. Pending Studies Studies pending at discharge: no Medical Emergencies . Who to Call and When: Medical Emergencies: If at any time you feel your situation is an emergency, please call 911 immediately. . Non-Emergent Contact Non-Emergency issues call your: Primary Care Provider . "Provider Documentation" section prepared by Noman Farooq. .
[2017-11-17 11:55] VITALS: BP 134/84; PULSE 82; TEMP 36.7; O2SAT 91
[2017-11-17 11:58] VITALS: BP 145/90; PULSE 82; TEMP 37.5; O2SAT 90
--- NOTE | 2017-11-17 14:08 | Discharge Summary ---
Orthopedic Discharge Summary Admission Date/Reason Nov 15, 2017 at 08:30 Spinal Stenosis. Discharge Date/Disposition Nov 17, 2017 Home Diagnosis Principal Diagnosis: Lumbar spinal stenosis Admission Physical Exam As per Admitting History & Physical. Hospital Course Patient underwent lumbar decompression fusion tolerated this well was taken to the orthopedic floor postoperatively. Postop day #1 he was up and amatory leg symptoms markedly improved. He progressed the postop day #2 DAVID drain decreased appropriately subsequently was discharged home. Discharge orders and instructions found in the chart for further review. Discharge Instructions Please refer to the electronic Patient Visit Report (Discharge Instructions) for additional information.
[2017-11-17] MEDS ORDERED: GABAPENTIN 600MG Q12H DOSE PO SCH (18:00)
[2017-11-19] MEDS ORDERED: GABAPENTIN 600MG X1 DOSE PO SCH (06:00)
== END 2017-11-17 14:34 | disposition home or self-care (01) | DRG 454 ==
LOC: C.ACU 07:06 → C.3E 08:30 → ENRESERV 11:27
PROVIDERS: ADMIT Orthopaedic Surgery Orthopaedic Surgery of the Spine; ATTEND Orthopaedic Surgery Orthopaedic Surgery of the Spine
PROC: 0ST40ZZ Resection of Lumbosacral Disc, Open Approach (ICD-10-PCS; principal; 2017-11-15 09:15)
PROC: 0SG30AJ Fusion of Lumbosacral Joint with Interbody Fusion Device, Posterior Approach, Anterior Column, Open Approach (ICD-10-PCS; principal; 2017-11-15 09:15)
PROC: 0SG3071 Fusion of Lumbosacral Joint with Autologous Tissue Substitute, Posterior Approach, Posterior Column, Open Approach (ICD-10-PCS; principal; 2017-11-15 09:15)
DX: M48.061 Spinal stenosis, lumbar region without neurogenic claudication (principal); D62 Acute posthemorrhagic anemia; M43.16 Spondylolisthesis, lumbar region; F41.9 Anxiety disorder, unspecified; F32.9 Major depressive disorder, single episode, unspecified; K21.9 Gastro-esophageal reflux disease without esophagitis; F17.200 Nicotine dependence, unspecified, uncomplicated; Z79.899 Other long term (current) drug therapy; Z72.89 Other problems related to lifestyle; Z88.5 Allergy status to narcotic agent